=== PATIENT | male | born 1960 | race Two or more races ===

== ENCOUNTER 2023-11-03 11:45 | Emergency (ER) | payer MEDICAID, OTHER ==
[~2023-11-03] VITALS: Ht 170.2 cm; Wt 100.4 kg
[2023-11-03 16:45] VITALS: BP 155/81; PULSE 60; RESP 20; TEMP 98.3; O2SAT 98
[2023-11-03] MEDS ORDERED: AMIO200T33 PO (17:03)
[2023-11-03] MEDS ORDERED: METO-159 PO (17:03)
[2023-11-03] MEDS ORDERED: AMLO1TAB23 PO (17:03)
[2023-11-03] MEDS ORDERED: ATOR-47 PO (17:03)
[2023-11-03] MEDS ORDERED: APIX5TAB PO (17:03)
== END 2023-11-03 17:14 | disposition home or self-care (01) ==
LOC: ER 11:45
DX: I10 Essential (primary) hypertension (principal); E11.9 Type 2 diabetes mellitus without complications; E78.5 Hyperlipidemia, unspecified; E78.00 Pure hypercholesterolemia, unspecified; Z76.0 Encounter for issue of repeat prescription; Z86.73 Personal history of transient ischemic attack (TIA), and cerebral infarction without residual deficits

== ENCOUNTER 2023-12-13 14:07 | Emergency (ER) | payer MEDICARE, MEDICAID ==
[~2023-12-13] VITALS: Ht 160 cm; Wt 90.0 kg
[~2023-12-13 14:07] MED LIST: AMIO200T33 PO; AMLO1TAB23 PO; APIX5TAB PO; ATOR-47 PO; METO-159 PO
[2023-12-13] MEDS ORDERED: AMLO1TAB23 PO (16:05)
[2023-12-13] MEDS ORDERED: AMIO200T33 PO (16:05)
[2023-12-13] MEDS ORDERED: APIX5TAB PO (16:05)
[2023-12-13] MEDS ORDERED: METO-159 PO (16:05)
[2023-12-13] MEDS ORDERED: ATOR-47 PO (16:06)
[2023-12-13 16:33] VITALS: BP 113/84; PULSE 70; RESP 20; O2SAT 98
== END 2023-12-13 16:35 | disposition home or self-care (01) ==
LOC: ER 14:07
DX: I10 Essential (primary) hypertension (principal); E78.5 Hyperlipidemia, unspecified; E11.9 Type 2 diabetes mellitus without complications; Z86.73 Personal history of transient ischemic attack (TIA), and cerebral infarction without residual deficits; Z76.0 Encounter for issue of repeat prescription; Z79.899 Other long term (current) drug therapy